=== PATIENT | male | born 1945 | race American Indian/Alaskan Native ===

== ENCOUNTER → 2017-07-23 | Day surgery (SDC) | payer MEDICARE, OTHER ==
[2017-07-18 14:59] LABS: Urine RBC None Seen /hpf (0 - 3)
[2017-07-18 15:43] LABS: Basophils # (auto) 0 uL; Basophils % (auto) 0.3 % (0.0-2.0); CONDITION Y; Eosinophils # (auto) 0.2 uL; Eosinophils % (auto) 2.8 % (0.0-7.0); Lymphocytes # (auto) 2.5 uL; Lymphocytes % (auto) 34.2 % (10.0-50.0); Mean Corpuscular Hemoglobin 32.8 pg (28.0-32.0); Mean Corpuscular Hgb Conc. 33.9 g/dL (32.0-36.0); Mean Corpuscular Volume 96.6 fL (80.0-100.0); Mean Platelet Volume 9.1 fL (7.4-10.4); Monocytes # (auto) 0.6 uL; Monocytes % (auto) 7.8 % (0.0-12.0); Neutrophils # (auto) 4.1 uL; Neutrophils % (auto) 54.9 % (37.0-80.0); Platelet Count (auto) 232 10^3/uL (140-450); Red Cell Distribution Width 14.4 % (11.6-16.0); White Blood Cell 7.4 10^3/uL (4.4-10.8)
[2017-07-18 15:57] LABS: INR 0.95 (0.9-1.15); Partial Thromboplastin Time 29.7 sec (22.64-33.71); Prothrombin Time 10.3 sec (9.37-12.3)
[2017-07-18 16:04] LABS: Albumin 4.2 g/dL (3.4-5.0); Bilirubin, Total 0.5 mg/dL (0.2-1.0); Calcium 9.4 mg/dL (8.5-10.1); Total Protein 7.9 g/dL (6.4-8.2)
[2017-07-18 16:20] LABS: Urine Bilirubin Negative (Negative); Urine Blood Negative /uL (Negative); Urine Color Yellow (Yellow); Urine Glucose Normal (Normal); Urine Ketone Negative (Negative); Urine Mucus FEW (None Seen); Urine Nitrite Negative (Negative); Urine Squamous Epithelial Cell FEW /hpf (<5); Urine Urobilinogen Normal (Negative); Urine pH 5.5 (5.0-8.0)
[~2017-07-23] VITALS: Ht 193 cm; Wt 97.5 kg
[~2017-07-23] MED LIST: BUPIVACAINE 0.75% INJ 10ML MPV SDV IJ ONE; CLINDAMYCIN 600MG IV 50 ML IV ONE; HYDROmorphone HCL 2 MG/ML VL IV PRN; KETOROLAC TROMETH 30 MG/ML 1ML VIAL IV ONE; METOCLOPRAMIDE HCL 5MG/ml INJ 2ml VIAL IV ONE; MIDAZOLAM HCL 1MG/1ML-2 ML VIAL ONE; ONDANSETRON HCL 4 MG/2 ML VIAL ONE; PROPOFOL 10 MG/ML 20 ML IV ONE; SODIUM CHLORIDE LOCK 20 ML ONE; fentaNYL CITRATE 100 MCG/2 ML VL ONE
[2017-07-23 10:55] VITALS: BP 119/70
== END | disposition home or self-care (01) ==
LOC: SUR 08:13
PROVIDERS: ATTEND Podiatrist Foot & Ankle Surgery
DX: M20.42 Other hammer toe(s) (acquired), left foot (principal); M20.12 Hallux valgus (acquired), left foot; Z88.0 Allergy status to penicillin; F17.210 Nicotine dependence, cigarettes, uncomplicated
CPT/HCPCS: 28285; 28296; 36415; 73620; 76000; 80053; 81001; 85025; 85610; 85730; C1769; J2250; J2405; J2704; J3010; J3490; L3260

== ENCOUNTER 2023-02-05 10:31 | Inpatient (IN) | payer MEDICARE, OTHER ==
[~2023-02-05] VITALS: Ht 193 cm; Wt 95.0 kg
[2023-02-05] MEDS ORDERED: traMADol HCL 50 MG TAB PO ONE (11:30)
[2023-02-05 11:58] LABS: Basophils # (auto) 0.1 10 ^3/uL (0-0.2); Basophils % (auto) 1.6 % (0.0-2.0); Eosinophils # (auto) 0.1 10 ^3/uL (0-0.8); Eosinophils % (auto) 1.5 % (0.0-7.0); Hematocrit 44.7 % (41.0-53.0); Lymphocytes # (auto) 1.5 10 ^3/uL (0.4-5.4); Lymphocytes % (auto) 22.2 % (10.0-50.0); Mean Corpuscular Hemoglobin 31.9 pg (28.0-32.0); Mean Corpuscular Hgb Conc. 33.6 g/dL (32.0-36.0); Mean Corpuscular Volume 94.8 fL (80.0-100.0); Monocytes # (auto) 0.5 10 ^3/uL (0-1.3); Monocytes % (auto) 7.9 % (0.0-12.0); Neutrophils # (auto) 4.6 10 ^3/uL (1.6-8.6); Neutrophils % (auto) 66.8 % (37.0-80.0); Nucleated Red Blood Cells % 0.2 %; Red Blood Cells 4.71 10^6/uL (4.5-5.90); Red Cell Distribution Width 13.5 % (11.8-14.3); White Blood Cell 6.9 10^3/uL (4.4-10.8)
[2023-02-05 12:13] LABS: INR 1.03 (0.9-1.15); Partial Thromboplastin Time 28.8 sec (24.6-33.4)
[2023-02-05 12:23] LABS: Albumin 3.6 g/dL (3.4-5.0); BUN/Creatinine Ratio 15.6 (10.0-20.0); Bilirubin, Total 1.1 mg/dL (0.2-1.0); Calcium 9.3 mg/dL (8.5-10.1); Potassium 4.1 mmol/L (3.5-5.1); Total Protein 7.2 g/dL (6.4-8.2)
[2023-02-05] MEDS ORDERED: FOLIC ACID 1 MG TAB PO ONE ×2 (12:45→14:30)
[2023-02-05] MEDS ORDERED: D5W/SOD CHL 0.45%/KCL 20MEQ 1,000 ML IV ONE (12:45)
[2023-02-05] MEDS ORDERED: THIAMINE 100mg/ml INJ (200mg/2ml VIAL) IV ONE (12:45)
[2023-02-05] MEDS ORDERED: MULTIPLE VITAMIN TAB PO ONE ×2 (12:45→14:30)
[2023-02-05] MEDS ORDERED: levoFLOXacin 500MG 100 ML IV ONE (13:45)
[2023-02-05] MEDS: hydrALAZINE HCL 20 MG/ML VL IV ONE ×2 (14:15→14:58)
[2023-02-05] MEDS ORDERED: NITROGLYCERIN 0.4 MG SL TAB SL PRN (14:30)
[2023-02-05] MEDS ORDERED: MORPHINE SULFATE INJ 2 MG/ml SYRG IV PRN (14:30)
[2023-02-05] MEDS ORDERED: LORazepam 2MG/ML-1ML VIAL IV PRN (14:30)
[2023-02-05] MEDS ORDERED: PANTOPRAZOLE 40 MG/10 ML VIAL INJ IV ONE (14:30)
[2023-02-05] MEDS ORDERED: APIX5TAB PO (14:39)
[2023-02-05] MEDS ORDERED: ASPI-528 (14:39)
[2023-02-05] MEDS ORDERED: SEMA2INJ SC (14:39)
[2023-02-05] MEDS ORDERED: INDO25CA17 PO (14:39)
[2023-02-05] MEDS ORDERED: AMLO-489 PO (14:39)
[2023-02-05] MEDS ORDERED: HYDR1TAB97 PO (14:39)
[2023-02-05] MEDS ORDERED: METF-371 PO (14:39)
[2023-02-05] MEDS: SODIUM CHLORIDE 0.9% 1,000 ML IV SCH (15:00)
[2023-02-05] MEDS ORDERED: DEXTROSE (50%) 50ML SYRG IV PRN (15:00)
[2023-02-05] MEDS: InsuLIN REG 1unit/0.01ml Soln (100units/ml) SC SCH ×2 (17:00→22:00)
[2023-02-05] MEDS: ACCU-CHEK COMFORT CURVE STRIP VI SCH ×2 (19:03→23:50)
[2023-02-05 20:01] LABS: Urine Bacteria NONE SEEN /hpf (None Seen); Urine Blood Negative /uL (Negative); Urine Mucus FEW (None Seen); Urine WBC 4 /hpf (0 - 3)
[2023-02-05] MEDS: CARBIDOPA W LEVODOPA 10/100mg TABLET PO SCH (22:00)
[2023-02-05] MEDS: APIXABAN 5 MG TAB PO SCH (22:00)
[2023-02-05 23:28] VITALS: BP 135/83
[2023-02-05] MEDS: metFORMIN HYDROCHLORIDE 850 MG TAB PO SCH (23:48)
[2023-02-06] VITALS (7 sets, daily range): BP systolic 109–136; BP diastolic 68–97
[2023-02-06] MEDS ORDERED: CARB10TA21 PO (00:01)
[2023-02-06] MEDS ORDERED: INSLANTI SC (00:01)
[2023-02-06] MEDS ORDERED: ONDANSETRON HCL 4 MG/2 ML VIAL IV PRN (00:30)
[2023-02-06] MEDS: MORPHINE SULFATE INJ 2 MG/ml SYRG IV PRN ×2 (00:47→23:42)
[2023-02-06] MEDS: SODIUM CHLORIDE 0.9% 1,000 ML IV SCH ×2 (01:08→16:55)
[2023-02-06] MEDS: InsuLIN REG 1unit/0.01ml Soln (100units/ml) SC SCH ×4 (06:10→21:41)
[2023-02-06] MEDS: ACCU-CHEK COMFORT CURVE STRIP VI SCH ×4 (06:10→21:41)
[2023-02-06 08:38] LABS: Basophils # (auto) 0 10 ^3/uL (0-0.2); Basophils % (auto) 0.7 % (0.0-2.0); Eosinophils # (auto) 0.1 10 ^3/uL (0-0.8); Eosinophils % (auto) 2.3 % (0.0-7.0); Hemoglobin 13.8 g/dL (13.5-17.5); Lymphocytes # (auto) 1.4 10 ^3/uL (0.4-5.4); Lymphocytes % (auto) 22.4 % (10.0-50.0); Mean Corpuscular Hemoglobin 31.9 pg (28.0-32.0); Mean Corpuscular Hgb Conc. 33.7 g/dL (32.0-36.0); Mean Corpuscular Volume 94.8 fL (80.0-100.0); Monocytes # (auto) 0.6 10 ^3/uL (0-1.3); Monocytes % (auto) 9.5 % (0.0-12.0); Neutrophils # (auto) 4.2 10 ^3/uL (1.6-8.6); Neutrophils % (auto) 65.1 % (37.0-80.0); Nucleated Red Blood Cells % 0.3 %; Red Blood Cells 4.33 10^6/uL (4.5-5.90); Red Cell Distribution Width 13.5 % (11.8-14.3); White Blood Cell 6.4 10^3/uL (4.4-10.8)
[2023-02-06 08:52] LABS: Albumin 3.2 g/dL (3.4-5.0); Calcium 8.8 mg/dL (8.5-10.1); Potassium 3.8 mmol/L (3.5-5.1)
[2023-02-06 08:56] LABS: BUN/Creatinine Ratio 14.4 (10.0-20.0); Bilirubin, Total 0.9 mg/dL (0.2-1.0); Total Protein 6.5 g/dL (6.4-8.2)
[2023-02-06] MEDS ORDERED: MULTIPLE VITAMIN TAB PO SCH (10:00)
[2023-02-06] MEDS ORDERED: ENOXAPARIN SOD 40 MG/0.4 ML SYRINGE SC SCH (10:00)
[2023-02-06] MEDS ORDERED: FOLIC ACID 1 MG TAB PO SCH (10:00)
[2023-02-06] MEDS ORDERED: INDOMETHACIN 25 MG CAP PO SCH (10:00)
[2023-02-06] MEDS ORDERED: ASPirin-EC 81 mg tab PO SCH (10:00)
[2023-02-06] MEDS: PANTOPRAZOLE 40 MG/10 ML VIAL INJ IV SCH (10:37)
[2023-02-06] MEDS: levoFLOXacin 500MG 100 ML IV SCH (10:37)
[2023-02-06] MEDS: metFORMIN HYDROCHLORIDE 850 MG TAB PO SCH (10:38)
[2023-02-06] MEDS: APIXABAN 5 MG TAB PO SCH (10:38)
[2023-02-06] MEDS: THIAMINE HCL 100 MG TAB PO SCH (10:38)
[2023-02-06] MEDS: CARBIDOPA W LEVODOPA 10/100mg TABLET PO SCH ×2 (10:38→21:41)
[2023-02-06] MEDS: amLODIPine BESYLATE 5 MG TAB PO SCH (10:38)
[2023-02-06] MEDS ORDERED: GELATIN 1 SPONGE SIZE 50 TOP ONE (12:15)
[2023-02-06] MEDS ORDERED: LORazepam 2MG/ML-1ML VIAL IV PRN (12:15)
[2023-02-06] MEDS ORDERED: LIDOCAINE 2% (LOCAL ANESTH.) PF 5ml SDV ONE (12:15)
[2023-02-06] MEDS ORDERED: THIAMINE 100mg/ml INJ (200mg/2ml VIAL) IV ONE (12:30)
[2023-02-06 12:57] LABS: Hepatitis A Ab IgM Negative; Hepatitis B Core IgM Negative; Hepatitis C Antibody Negative (Negative)
[2023-02-06] MEDS ORDERED: IOHEXOL 300 MG/ML 100ML BOTTLE IJ ONE (13:31)
[2023-02-06] MEDS ORDERED: fentaNYL CITRATE 100 MCG/2 ML VL ONE (14:29)
[2023-02-06] MEDS ORDERED: MIDAZOLAM HCL 2MG/2ML 2ml VIAL (1mg/ml) ONE (14:29)
[2023-02-06] MEDS ORDERED: MIDAZOLAM HCL 2MG/2ML 2ml VIAL (1mg/ml) IV ONE (14:30)
[2023-02-06] MEDS ORDERED: fentaNYL CITRATE 100 MCG/2 ML VL IV ONE (14:30)
[2023-02-07] VITALS (7 sets, daily range): BP systolic 99–130; BP diastolic 59–77
[2023-02-07 06:19] LABS: Basophils # (auto) 0 10 ^3/uL (0-0.2); Basophils % (auto) 0.3 % (0.0-2.0); Eosinophils # (auto) 0.1 10 ^3/uL (0-0.8); Hematocrit 41.2 % (41.0-53.0); Hemoglobin 14.4 g/dL (13.5-17.5); Lymphocytes # (auto) 0.9 10 ^3/uL (0.4-5.4); Lymphocytes % (auto) 15.4 % (10.0-50.0); Mean Corpuscular Hgb Conc. 34.9 g/dL (32.0-36.0); Mean Corpuscular Volume 91.6 fL (80.0-100.0); Monocytes # (auto) 0.3 10 ^3/uL (0-1.3); Monocytes % (auto) 5.9 % (0.0-12.0); Neutrophils # (auto) 4.2 10 ^3/uL (1.6-8.6); Neutrophils % (auto) 76.4 % (37.0-80.0); Nucleated Red Blood Cells % 0.4 %; Red Cell Distribution Width 13.3 % (11.8-14.3); White Blood Cell 5.5 10^3/uL (4.4-10.8)
[2023-02-07] MEDS: SODIUM CHLORIDE 0.9% 1,000 ML IV SCH ×2 (06:35→22:32)
[2023-02-07] MEDS: ACCU-CHEK COMFORT CURVE STRIP VI SCH ×4 (06:35→22:00)
[2023-02-07] MEDS: InsuLIN REG 1unit/0.01ml Soln (100units/ml) SC SCH ×4 (06:36→22:31)
[2023-02-07 06:42] LABS: BUN/Creatinine Ratio 15.8 (10.0-20.0); Bilirubin, Total 4.1 mg/dL (0.2-1.0); Calcium 9.2 mg/dL (8.5-10.1); Total Protein 6.2 g/dL (6.4-8.2)
[2023-02-07] MEDS: MORPHINE SULFATE INJ 2 MG/ml SYRG IV PRN (07:38)
[2023-02-07] MEDS: CARBIDOPA W LEVODOPA 10/100mg TABLET PO SCH ×2 (10:00→22:30)
[2023-02-07] MEDS: amLODIPine BESYLATE 5 MG TAB PO SCH (10:01)
[2023-02-07] MEDS: PANTOPRAZOLE 40 MG/10 ML VIAL INJ IV SCH (10:01)
[2023-02-07] MEDS: levoFLOXacin 500MG 100 ML IV SCH (10:01)
[2023-02-07] MEDS: THIAMINE HCL 100 MG TAB PO SCH (10:01)
[2023-02-07] MEDS ORDERED: ENOXAPARIN SOD 40 MG/0.4 ML SYRINGE SC ONE (13:30)
[2023-02-07] MEDS ORDERED: DOCUSATE SOD 100 MG CAP PO PRN (13:30)
[2023-02-07] MEDS ORDERED: DOCUSATE SOD 100 MG CAP PO ONE (13:30)
[2023-02-07] MEDS ORDERED: POLYETHYLENE GLYCOL 17 GM PWDR PO ONE (13:30)
[2023-02-07] MEDS: Ensure HIGH Protein Chocolate 8oz Bottle PO SCH (18:34)
[2023-02-08] MEDS: HYDROmorphone HCL 2 MG/ML VL/or syr IV PRN ×3 (01:05→23:59)
[2023-02-08 04:00] VITALS: BP 99/59
[2023-02-08] MEDS: ACCU-CHEK COMFORT CURVE STRIP VI SCH ×4 (05:58→21:41)
[2023-02-08] MEDS: InsuLIN REG 1unit/0.01ml Soln (100units/ml) SC SCH ×4 (05:58→21:41)
[2023-02-08 09:00] VITALS: BP 103/62
[2023-02-08] MEDS: POLYETHYLENE GLYCOL 17 GM PWDR PO SCH (10:00)
[2023-02-08] MEDS: Ensure HIGH Protein Chocolate 8oz Bottle PO SCH ×3 (10:12→18:24)
[2023-02-08] MEDS: PANTOPRAZOLE 40 MG/10 ML VIAL INJ IV SCH (10:13)
[2023-02-08] MEDS: levoFLOXacin 500MG 100 ML IV SCH (10:13)
[2023-02-08] MEDS: THIAMINE HCL 100 MG TAB PO SCH (10:13)
[2023-02-08] MEDS: SODIUM CHLORIDE 0.9% 1,000 ML IV SCH (10:13)
[2023-02-08] MEDS: CARBIDOPA W LEVODOPA 10/100mg TABLET PO SCH ×2 (10:14→21:41)
[2023-02-08] MEDS: ENOXAPARIN SOD 40 MG/0.4 ML SYRINGE SC SCH (10:14)
[2023-02-08 13:00] VITALS: BP 119/77
[2023-02-08 17:00] VITALS: BP 110/72
[2023-02-08 20:00] VITALS: BP 109/74
[2023-02-08 21:32] VITALS: BP 116/66
[2023-02-09] MEDS: SODIUM CHLORIDE 0.9% 1,000 ML IV SCH ×3 (03:35→21:19)
[2023-02-09 04:42] VITALS: BP 123/69
[2023-02-09] MEDS: InsuLIN REG 1unit/0.01ml Soln (100units/ml) SC SCH ×4 (06:24→21:18)
[2023-02-09] MEDS: ACCU-CHEK COMFORT CURVE STRIP VI SCH ×4 (06:27→21:18)
[2023-02-09 09:00] VITALS: BP 104/69
[2023-02-09] MEDS: POLYETHYLENE GLYCOL 17 GM PWDR PO SCH (10:00)
[2023-02-09] MEDS: Ensure HIGH Protein Chocolate 8oz Bottle PO SCH ×3 (10:00→17:32)
[2023-02-09] MEDS: PANTOPRAZOLE 40 MG/10 ML VIAL INJ IV SCH (10:02)
[2023-02-09] MEDS: levoFLOXacin 500MG 100 ML IV SCH (10:02)
[2023-02-09] MEDS: THIAMINE HCL 100 MG TAB PO SCH (10:03)
[2023-02-09] MEDS: CARBIDOPA W LEVODOPA 10/100mg TABLET PO SCH ×2 (10:04→21:04)
[2023-02-09] MEDS: ENOXAPARIN SOD 40 MG/0.4 ML SYRINGE SC SCH (10:04)
[2023-02-09 13:00] VITALS: BP 115/75
[2023-02-09] MEDS: HYDROmorphone HCL 2 MG/ML VL/or syr IV PRN ×2 (14:24→21:05)
[2023-02-09 17:05] VITALS: BP 116/77
[2023-02-09 20:00] VITALS: BP 109/74
[2023-02-09 21:41] VITALS: BP 130/58
[2023-02-10] VITALS (7 sets, daily range): BP systolic 100–144; BP diastolic 60–77
[2023-02-10] MEDS: HYDROmorphone HCL 2 MG/ML VL/or syr IV PRN ×4 (05:09→21:17)
[2023-02-10] MEDS: InsuLIN REG 1unit/0.01ml Soln (100units/ml) SC SCH ×4 (05:56→20:56)
[2023-02-10] MEDS: ACCU-CHEK COMFORT CURVE STRIP VI SCH ×4 (05:56→20:56)
[2023-02-10] MEDS: Ensure HIGH Protein Chocolate 8oz Bottle PO SCH ×3 (08:05→18:10)
[2023-02-10] MEDS: POLYETHYLENE GLYCOL 17 GM PWDR PO SCH (10:00)
[2023-02-10] MEDS: levoFLOXacin 500MG 100 ML IV SCH (10:03)
[2023-02-10] MEDS: PANTOPRAZOLE 40 MG/10 ML VIAL INJ IV SCH (10:03)
[2023-02-10] MEDS: CARBIDOPA W LEVODOPA 10/100mg TABLET PO SCH ×2 (10:04→20:57)
[2023-02-10] MEDS: THIAMINE HCL 100 MG TAB PO SCH (10:04)
[2023-02-10] MEDS: ENOXAPARIN SOD 40 MG/0.4 ML SYRINGE SC SCH (10:05)
[2023-02-10] MEDS ORDERED: LORazepam 2MG/ML-1ML VIAL IV ONE (14:15)
[2023-02-10] MEDS ORDERED: GADOTERATE MEG 10 MMOL/20ml INJ (0.5MMOL/ml) IV ONE (16:31)
[2023-02-10] MEDS: ONDANSETRON HCL 4 MG/2 ML VIAL IV PRN (16:59)
[2023-02-11] MEDS: HYDROmorphone HCL 2 MG/ML VL/or syr IV PRN ×5 (02:56→22:07)
[2023-02-11 05:00] VITALS: BP 112/66
[2023-02-11] MEDS: ACCU-CHEK COMFORT CURVE STRIP VI SCH ×4 (06:13→21:34)
[2023-02-11] MEDS: InsuLIN REG 1unit/0.01ml Soln (100units/ml) SC SCH ×4 (06:13→21:55)
[2023-02-11] MEDS: Ensure HIGH Protein Chocolate 8oz Bottle PO SCH ×3 (08:57→18:23)
[2023-02-11] MEDS: levoFLOXacin 500MG 100 ML IV SCH (08:57)
[2023-02-11] MEDS: PANTOPRAZOLE 40 MG TAB PO SCH (08:58)
[2023-02-11] MEDS: ENOXAPARIN SOD 40 MG/0.4 ML SYRINGE SC SCH (08:58)
[2023-02-11] MEDS: THIAMINE HCL 100 MG TAB PO SCH (08:58)
[2023-02-11] MEDS: POLYETHYLENE GLYCOL 17 GM PWDR PO SCH (08:59)
[2023-02-11 09:00] VITALS: BP 124/80
[2023-02-11] MEDS: CARBIDOPA W LEVODOPA 10/100mg TABLET PO SCH ×2 (11:44→21:34)
[2023-02-11] MEDS: ONDANSETRON HCL 4 MG/2 ML VIAL IV PRN (12:51)
[2023-02-11] MEDS ORDERED: IOHEXOL 300 MG/ML 100ML BOTTLE IJ ONE (12:59)
[2023-02-11 13:00] VITALS: BP 111/57
[2023-02-11 13:49] LABS: BUN/Creatinine Ratio 15.7 (10.0-20.0); Potassium 3.9 mmol/L (3.5-5.1)
[2023-02-11 16:24] VITALS: BP 108/68
[2023-02-11 20:00] VITALS: BP 128/72
[2023-02-11 22:15] VITALS: BP 111/57
[2023-02-12 04:52] VITALS: BP 133/67
[2023-02-12] MEDS: InsuLIN REG 1unit/0.01ml Soln (100units/ml) SC SCH ×4 (06:23→22:41)
[2023-02-12] MEDS: ACCU-CHEK COMFORT CURVE STRIP VI SCH ×4 (06:23→22:46)
[2023-02-12] MEDS: HYDROmorphone HCL 2 MG/ML VL/or syr IV PRN ×3 (06:26→20:01)
[2023-02-12] MEDS: Ensure HIGH Protein Chocolate 8oz Bottle PO SCH ×3 (08:00→18:00)
[2023-02-12 08:56] LABS: Basophils # (auto) 0 10 ^3/uL (0-0.2); Basophils % (auto) 0.4 % (0.0-2.0); Eosinophils # (auto) 0.2 10 ^3/uL (0-0.8); Eosinophils % (auto) 2.2 % (0.0-7.0); Hematocrit 35.9 % (41.0-53.0); Hemoglobin 12.6 g/dL (13.5-17.5); Lymphocytes # (auto) 0.5 10 ^3/uL (0.4-5.4); Lymphocytes % (auto) 5.7 % (10.0-50.0); Mean Corpuscular Hemoglobin 31.8 pg (28.0-32.0); Mean Corpuscular Hgb Conc. 35.1 g/dL (32.0-36.0); Mean Corpuscular Volume 90.5 fL (80.0-100.0); Monocytes # (auto) 0.5 10 ^3/uL (0-1.3); Monocytes % (auto) 5.7 % (0.0-12.0); Neutrophils # (auto) 7.3 10 ^3/uL (1.6-8.6); Red Blood Cells 3.97 10^6/uL (4.5-5.90); Red Cell Distribution Width 13.8 % (11.8-14.3); White Blood Cell 8.5 10^3/uL (4.4-10.8)
[2023-02-12 09:00] VITALS: BP 125/74
[2023-02-12] MEDS: POLYETHYLENE GLYCOL 17 GM PWDR PO SCH (10:00)
[2023-02-12] MEDS: ENOXAPARIN SOD 40 MG/0.4 ML SYRINGE SC SCH (10:00)
[2023-02-12] MEDS: levoFLOXacin 500MG 100 ML IV SCH (11:11)
[2023-02-12] MEDS: PANTOPRAZOLE 40 MG TAB PO SCH (11:12)
[2023-02-12] MEDS: THIAMINE HCL 100 MG TAB PO SCH (11:12)
[2023-02-12] MEDS: CARBIDOPA W LEVODOPA 10/100mg TABLET PO SCH ×2 (11:12→22:41)
[2023-02-12] MEDS ORDERED: MIDAZOLAM HCL 2MG/2ML 2ml VIAL (1mg/ml) IV ONE (12:30)
[2023-02-12] MEDS ORDERED: fentaNYL CITRATE 100 MCG/2 ML VL IV ONE (12:30)
[2023-02-12] MEDS ORDERED: ceFAZolin 1GM VL ONE (12:59)
[2023-02-12 13:00] VITALS: BP 112/57
[2023-02-12] MEDS ORDERED: fentaNYL CITRATE 100 MCG/2 ML VL ONE (13:31)
[2023-02-12] MEDS ORDERED: MIDAZOLAM HCL 2MG/2ML 2ml VIAL (1mg/ml) ONE (13:31)
[2023-02-12] MEDS ORDERED: HEPARIN SODIUM (PORCINE) 5000 UNITS/ML 1ML VIAL ONE (13:52)
[2023-02-12] MEDS ORDERED: LIDOCAINE 2%HCL (LOCAL ANESTH.) INJ 20ML MDV ONE (14:08)
[2023-02-12 16:38] VITALS: BP 125/68
[2023-02-12 19:40] VITALS: BP 159/68
[2023-02-12 22:00] VITALS: BP 154/68
[2023-02-13] MEDS: HYDROmorphone HCL 2 MG/ML VL/or syr IV PRN ×3 (01:32→14:29)
[2023-02-13 05:00] VITALS: BP 112/75
[2023-02-13] MEDS: InsuLIN REG 1unit/0.01ml Soln (100units/ml) SC SCH ×2 (06:51→11:53)
[2023-02-13] MEDS: ACCU-CHEK COMFORT CURVE STRIP VI SCH ×2 (06:52→11:52)
[2023-02-13 08:00] VITALS: BP 148/73
[2023-02-13 09:00] VITALS: BP 148/73
[2023-02-13] MEDS: Ensure HIGH Protein Chocolate 8oz Bottle PO SCH ×2 (09:01→11:53)
[2023-02-13] MEDS: THIAMINE HCL 100 MG TAB PO SCH (09:01)
[2023-02-13] MEDS: levoFLOXacin 500MG 100 ML IV SCH (09:01)
[2023-02-13] MEDS: PANTOPRAZOLE 40 MG TAB PO SCH (09:02)
[2023-02-13] MEDS: ENOXAPARIN SOD 40 MG/0.4 ML SYRINGE SC SCH (09:02)
[2023-02-13] MEDS: CARBIDOPA W LEVODOPA 10/100mg TABLET PO SCH (09:02)
[2023-02-13] MEDS: POLYETHYLENE GLYCOL 17 GM PWDR PO SCH (09:03)
[2023-02-13 13:00] VITALS: BP 152/74
[2023-02-13] MEDS ORDERED: PERCOT PO (13:06)
[2023-02-13 13:28] VITALS: BP 148/73
[2023-02-13 15:35] VITALS: BP 148/72
== END 2023-02-13 16:13 | disposition home health service (06) | DRG 180 ==
LOC: EDUNIT# 10:31 → ER 10:31 → EDBD 10:31 → TELE 14:29 → TELE-WESTW 22:37
PROVIDERS: ADMIT Nurse Practitioner Family; ATTEND Internal Medicine
PROC: 0GB23ZX Excision of Left Adrenal Gland, Percutaneous Approach, Diagnostic (ICD-10-PCS; principal; 2023-02-06)
PROC: 0JH63WZ Insertion of Totally Implantable Vascular Access Device into Chest Subcutaneous Tissue and Fascia, Percutaneous Approach (ICD-10-PCS; 2023-02-12)
DX: C34.90 Malignant neoplasm of unspecified part of unspecified bronchus or lung (principal); J96.00 Acute respiratory failure, unspecified whether with hypoxia or hypercapnia; K80.20 Calculus of gallbladder without cholecystitis without obstruction; E11.9 Type 2 diabetes mellitus without complications; I10 Essential (primary) hypertension; Z20.822 Contact with and (suspected) exposure to COVID-19; J44.9 Chronic obstructive pulmonary disease, unspecified; K86.89 Other specified diseases of pancreas; R59.0 Localized enlarged lymph nodes; N28.1 Cyst of kidney, acquired; F17.210 Nicotine dependence, cigarettes, uncomplicated; G20 Parkinson's disease; I71.43 Infrarenal abdominal aortic aneurysm, without rupture; N40.0 Benign prostatic hyperplasia without lower urinary tract symptoms; Z88.0 Allergy status to penicillin
CPT/HCPCS: 10005; 36415; 70470; 71045; 71260; 74150; 74176; 76700; 77012; 80048; 80053; 80074; 81001; 82088; 82378; 82533; 82962; 83036; 83690; 83835; 84154; 84484; 85025; 85610; 85730; 86301; 87040; 87081; 87086; 87426; 93306; 96361; 96374; 96375; 97110; 97116; 97163; 97530; C9113; G0378; J0690; J1815; J1956; J2001; J2250; J2405